=== PATIENT | male | born 1970 | race African-American/Black ===

== ENCOUNTER 2021-03-19 22:52 | Emergency (ER) | payer MEDICAID, OTHER ==
[~2021-03-19] VITALS: Ht 172.7 cm; Wt 67.0 kg
[2021-03-19] MEDS ORDERED: MAGNESIUM/ALUMINUM HYDROXIDE/SIMETHICONE 30ML UDC PO STA (23:20)
[2021-03-19] MEDS ORDERED: ACETAMINOPHEN 325MG TABLET PO STA (23:20)
[2021-03-20] MEDS ORDERED: KETOROLAC 30MG/ML VIAL IV STA (00:13)
[2021-03-20] MEDS ORDERED: ONDANSETRON HCL 4MG/2ML INJ IV STA (00:13)
[2021-03-20] MEDS ORDERED: SODIUM CHLORIDE 0.9% 1,000 ML IV ONE (00:15)
[2021-03-20 00:50] LABS: BASOPHILS % 0.5 % (0.0-2.0); EOSINOPHILS % 0.1 % (0.0-5.0); HEMATOCRIT. 34.9 % (42.0-52.0); HEMOGLOBIN. 11.8 g/dL (14.0-18.0); MEAN CORPUSCULAR VOLUME 83.2 fL (80.0-94.0); MONOCYTES % 7.5 % (2.0-8.0); NEUTROPHILS % 77.9 % (40.0-76.0); PLATELET 220 x1000/uL (130-400); RED BLOOD CELL COUNT 4.19 mill/uL (4.7-6.1)
[2021-03-20 01:01] LABS: CHLORIDE 108 mEq/L (98-107)
[2021-03-20] MEDS ORDERED: TOPUD MT (02:10)
[2021-03-20 03:17] VITALS: BP 110/76
== END 2021-03-20 03:21 | disposition home or self-care (01) ==
LOC: ER 22:52
DX: R10.9 Unspecified abdominal pain (principal); M54.9 Dorsalgia, unspecified
CPT/HCPCS: 36415; 71045; 80053; 83690; 84484; 85025; 96374; 96375; 99284; J1885; J2405; J7030; Z7610